=== PATIENT | male | born 1970 | race Caucasian/White ===

== ENCOUNTER 2021-12-09 15:34 | Outpatient (CLI) | payer OTHER, SELFPAY ==
--- NOTE | 2021-12-09 | IMM_PTH ---
PATIENT: SARI OMER LOC: [facility] U#:[id number] AGE/SX: 51/M ROOM: RE12/09/[address]: Dr. William Jackson MD : 1970 BED: DIS: 12/09/2021 SPEC #: [id number] RECD: 12/13/21 12:26 STATUS: BRIAN ELTON #: [id number] ELENA: 12/09/21 00:[address]: William Jackson DEPT: IMMUNOHISTOCHEMISTRY RECD BY: Helga De La Cruz Tissues: Skin of forehead Procedures: MELAN-A (add) P40 (add) S100 (initial) PHYSICIAN & INSTITUTION [place] [address] SPECIMEN INFORMATION: Tissue Source: Left forehead lesion Clinical Info: Left forehead lesion Specimen Number: [id number] CPT code: 79526, 73714 x2 METHODOLOGY: Deparaffinized sections of prefer/formalin-fixed tissue or PAP/DQ stained slides are incubated with monoclonal/polyclonal antibodies/oligonucleotide probes. Localization is made via biotin free immunoperoxidase method. Appropriate controls are performed and reacted as expected. Results on target cell population are indicated in the following table: RESULTS: ANTIBODY / CLONE RESULT S-100 (4C4.9) negative Melan A (A103) negative P40 (BC28) negative These tests were developed and their performance characteristics determined by [facility]. They may not have been cleared or approved by the [place]. Food and Drug Administration. The FDA has determined that such clearance or approval is not necessary. The above immunohistochemical/dualISH markers are ordered and reviewed by the Pathologist. INTERPRETATION: Skin of left forehead, biopsy: No evidence of malignancy. AM:january 12/14/2021
--- NOTE | 2021-12-09 14:00 | LES_PTH ---
PATIENT: SARI OMER LOC: [facility] U#:[id number] AGE/SX: 51/M ROOM: RE12/09/[address]: Dr. William Jackson MD : 1970 BED: DIS: 12/09/2021 SPEC #: [id number] RECD: 12/09/21 14:59 STATUS: BRIAN ELTON #: [id number] ELENA: 12/09/21 14:[address]: William Jackson DEPT: SURGICAL PATHOLOGY RECD BY: Shania Baird Tissues: Skin of face, NOS Procedures: Surgery Specimen Level IV HEADER OPERATION: Left forehead lesion PRE-OP DIAGNOSIS: Left forehead lesion TISSUE SUBMITTED: Left forehead lesion MICROSCOPIC DIAGNOSIS Lesion of left forehead, biopsy: Actinic change and solar elastosis. See comment. AM:january 12/13/2021 MICROSCOPIC DESCRIPTION Slides are reviewed. GROSS DESCRIPTION Received in fixative is one container labeled with the patient's name and designated forehead lesion. The specimen consists of a minute piece of black skin measuring <0.1 cm in greatest dimension. The entire specimen is submitted in one cassette. / SJ:rg 12/10/2021 TC:5 [facility]: [id number]
== END 2021-12-09 23:59 | disposition short-term general hospital (02) ==
LOC: LABSPEC 15:40
PROVIDERS: Referring Provider Otolaryngology; Visit Provider Otolaryngology
DX: L57.8 Other skin changes due to chronic exposure to nonionizing radiation (principal)
CPT/HCPCS: 88305; 88341; 88342